=== PATIENT | male | born 1985 | race Caucasian/White ===

== ENCOUNTER 2016-10-27 22:39 | Emergency (ER) | payer OTHER ==
[2016-10-27] MEDS ORDERED: DEXAMETHASONE SOD PHOS 10 MG/1 ML VIAL ONE (23:17)
[2016-10-27] MEDS ORDERED: DIPHENHYDRAMINE HCL 50 MG CAPSULE ONE (23:44)
--- NOTE | 2016-10-28 08:05 | RAD ---
CHEST - 2 VIEWS COMPARISON: None. 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 FINDINGS: Views: Frontal and lateral chest Lungs: Normal Heart and vessels: Normal Trachea and bronchi: Normal Mediastinum and william: Normal Costophrenic sulci: Normal Chest wall and bones: Normal. Upper abdomen: Normal. IMPRESSION: Negative 2 view chest.
== END 2016-10-27 23:50 | disposition home or self-care (01) ==
LOC: ED 22:39
DX: T47.1X1A Poisoning by other antacids and anti-gastric-secretion drugs, accidental (unintentional), initial encounter (principal); J02.9 Acute pharyngitis, unspecified; R13.10 Dysphagia, unspecified; J68.0 Bronchitis and pneumonitis due to chemicals, gases, fumes and vapors; Y92.009 Unspecified place in unspecified non-institutional (private) residence as the place of occurrence of the external cause
CPT/HCPCS: 71020; 99283 ×2; 96372; A9270; J1100